=== PATIENT | male | born 1960 | race Caucasian/White ===

== ENCOUNTER 2023-12-05 06:42 | Day surgery (SDC) | payer BC, SELFPAY ==
[2023-12-05 07:18] VITALS: BP 138/80; BMI 31.8
[2023-12-05] MEDS: TYLENOL 1000 MG PO (07:28)
[2023-12-05] MEDS: NORMOSOL-R 1000 IV (07:41)
--- NOTE | 2023-12-05 11:27 | W.IMMPOSTOP ---
Surgical Immed Post Op Note
-
Primary Surgeon:� Jonnie
Assisting Surgeon:� Enrrique PGY1
Pre-op Diagnosis:� Lipoma of back as well as multiple lipomas of bilateral upper extremities
Post-op Diagnosis: � Same
Procedure Performed:� Excision of lipoma of upper extremity x16; back x1
Anesthesia Type:� MAC local
Specimen / Cultures:� Lipomas of right upper extremity, lipomas of left upper extremity, lipoma of back
Estimated Blood Loss:� 5cc
Complications:� None immediate
Operative Findings:� All lipomas excised in toto:
Left upper extremity: 7 lipomas ranging in size from 1x1cm to 5x3cm
Right upper extremity: 9 lipomas ranging in size from 1x2cm to 5x3cm
Back lipoma: 7cm x 7cm x 4cm
[2023-12-05 11:30] VITALS: BP 148/56
--- NOTE | 2023-12-05 11:30 | OR.RPT ---
Addendum entered and electronically signed by Max Cristina MD 12/16/23 11:56:
Addendum:
Lipomas excised from forearm and upper arm bilaterally.
Size ranges for the lesions are as follows.
RUE: 12 lesions measuring 10.7 x 10.5 x 2.7cm in aggregate, and ranging from 1.5 x 1.2 x 0.5 cm to 3.9 x 3.2 x 2.1 cm
LUE: 7 well-circumscribed, encapsulated, sheppard-yellow, lobulated fragments of adipose tissue weighing 50.3 g and measuring 7.9 x 5.5 x 2.5 cm
in aggregate, and ranging from 1.2 x 1.0 x 0.6 cm to 4.5 x 3.5 x 2.2 cm
Back: 8.9 x 8.1 x 2.9 cm
Original Note:
Operative Report
Operative Report
Primary Surgeon:� Jonnie
Assisting Surgeon:� Enrrique HAYES
Pre-op Diagnosis:� Lipoma of back as well as multiple lipomas of bilateral upper extremities
Post-op Diagnosis: � Same
Procedure Performed:� Excision of lipoma of upper extremity x16; back x1
Anesthesia Type:� MAC local
Specimen / Cultures:� Lipomas of right upper extremity, lipomas of left upper extremity, lipoma of back
Estimated Blood Loss:� 5cc
Complications:� None immediate
Operative Findings:� All lipomas excised in toto:
Left upper extremity: 7 lipomas ranging in size from 1x1cm to 5x3cm
Right upper extremity: 9 lipomas ranging in size from 1x2cm to 5x3cm
Back lipoma: 7cm x 7cm x 4cm
Date of Surgery:� 12/05/23
PROCEDURE:� After informed consent was obtained and all lesions were marked together with the patient in the preoperative area, the patient was brought to the operative suite and placed in supine position on the operating table. The patient was
sedated, prepped and draped in the usual sterile manner and an adequate local anesthetic was administered using lidocaine 1% with epinephrine.
Attention was turned to the right upper extremity. A full thickness elliptical incision was made over one of the masses and carried down to the capsule. The capsule was freed from surrounding structures with blunt and sharp dissection as well as
electrocautery. The lipoma was delivered through the wound and deep attachments were controlled with electrocautery. The mass was passed off the table as specimen. The wound was then irrigated with copious sterile saline, and hemostasis was obtained
using Bovie electrocautery. The skin was approximated with 3-0 Vicryl deep dermal interrupted sutures and 4-0 monocryl suture in a subcuticular fashion. Topical skin glue was then applied. This process was repeated for 8 additional masses on this
extremity.
Attention was then turned to the left upper extremity and the above process was repeated for a total of 7 masses.
The patient was then repositioned into right lateral decubitus and the back lesion was prepped and draped in the standard sterile fashion. The above process was repeated for a single lipoma of the back. All surgical counts were reported as correct.
The patient tolerated the procedure well and was taken to the PACU in stable condition.
I was present for and performed all parsons portions of the procedure. The resident assisted with exposure and skin closure.
[2023-12-05 11:45] VITALS: BP 151/66
[2023-12-05 12:00] VITALS: BP 169/74
== END 2023-12-05 12:10 | disposition home or self-care (01) ==
LOC: SDS 06:42
PROVIDERS: ATTENDING PHYSICIAN Surgery
DX: D17.21 Benign lipomatous neoplasm of skin and subcutaneous tissue of right arm (principal); D17.22 Benign lipomatous neoplasm of skin and subcutaneous tissue of left arm; D17.1 Benign lipomatous neoplasm of skin and subcutaneous tissue of trunk
CPT/HCPCS: 24071; 21930; 21931; 24075; 25075; 25071; 88304

== ENCOUNTER 2024-10-02 06:39 | Day surgery (SDC) | payer BC, SELFPAY ==
[2024-09-24 10:15] VITALS: BMI 32.4
[2024-09-24 10:54] LABS: Hematocrit 42.6 % (39.0-52.0); Hemoglobin 13.9 g/dL (13.0-18.0); Mean Corp Hgb Conc. 32.6 g/dL (33.0-37.0); Mean Corpuscular Hgb 29.4 pg (27.0-31.0); Mean Corpuscular Volume 90.1 fL (80.0-94.0); Mean Platelet Volume 10.8 fL (7.4-10.4); Platelet Count 193 10^3/uL (130-400); Red Blood Cell Count 4.73 10^6/uL (4.70-6.10); Red Cell Dist. Width 12.4 % (11.5-14.5); White Blood Cell Count 5.3 10^3/uL (4.8-10.8)
[2024-09-24 11:15] LABS: Blood Urea Nitrogen 21 mg/dl (9-20); Carbon Dioxide 28 mmol/L (22-30); Chloride 106 mmol/L (98-107); Estimated Creatinine Clearance 76 ml/min; Glucose 104 mg/dl (70-99); Potassium 4.3 mmol/L (3.5-5.1); Sodium 144 mmol/L (135-145); eGFR > 60.00
[2024-10-02 12:35] VITALS: BMI 32.4
[2024-10-02 12:36] VITALS: BP 152/66
[2024-10-02] MEDS: NEOMYCIN ENEMA 1 BOTTLE RECTAL (13:01)
[2024-10-02 15:02] VITALS: BP 98/58
[2024-10-02 15:15] VITALS: BP 119/71
[2024-10-02 15:33] VITALS: BP 124/86
[2024-10-02 15:45] VITALS: BP 143/74
[2024-10-02 16:00] VITALS: BP 150/84
== END 2024-10-02 16:49 | disposition home or self-care (01) ==
LOC: SDS 06:39
PROVIDERS: ATTENDING PHYSICIAN Specialist; FAMILY PHYSICIAN Physician Assistant Medical
DX: R97.20 Elevated prostate specific antigen [PSA] (principal); N40.1 Benign prostatic hyperplasia with lower urinary tract symptoms; C61 Malignant neoplasm of prostate
CPT/HCPCS: 55700; 36415; 76998; 80048; 85027; 88305; 88344; 93005; J1580